=== PATIENT | female | born 2000 | race Caucasian/White ===

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

== ENCOUNTER 2023-02-13 01:44 | Emergency (ER) | payer OTHER ==
[2023-02-13] MEDS ORDERED: Sodium Chloride 0.9% 1,000 ML IV ONE (01:49)
[2023-02-13] MEDS ORDERED: LORazepam 2 MG/ML SDV IVPUSH ONE (01:49)
[2023-02-13] MEDS ORDERED: Ketorolac 30 MG/ML SDV IVPUSH ONE (01:49)
[2023-02-13] MEDS ORDERED: Aluminum Hydroxide/Magnesium Hydroxide/Simethicone XS Susp 30 ML Cup PO ONE (01:52)
[2023-02-13 01:58] LABS: BASOPHILS PERCENT AUTO 0.2 % (0.0-1.5); EOSINOPHILS ABSOLUTE AUTO 0.3 K/uL (0.0-0.7); EOSINOPHILS PERCENT AUTO 1.9 % (0.0-7.0); HEMATOCRIT 43.1 % (36.0-46.0); HEMOGLOBIN 15.1 g/dL (12.0-16.0); LYMPHOCYTES ABSOLUTE AUTO 5.6 K/uL (0.6-2.4); LYMPHOCYTES PERCENT AUTO 38.2 % (16.0-40.0); MEAN CORPUSCULAR HEMOGLOBIN 29.3 pg (27.0-32.0); MEAN CORPUSCULAR VOLUME 83.5 fL (80.0-98.0); MONOCYTES ABSOLUTE AUTO 1.6 K/uL (0.0-0.8); MONOCYTES PERCENT AUTO 10.8 % (0.0-15.0); NEUTROPHILS ABSOLUTE AUTO 7.2 K/uL (1.4-5.7); NEUTROPHILS PERCENT AUTO 48.9 % (48.0-80.0); NRBC ABSOLUTE 0 K/uL; PLATELET COUNT,PLT 291 K/uL (150-400); RED BLOOD CELL COUNT 5.16 M/uL (4.30-5.90); WHITE BLOOD CELL COUNT,WBC 14.72 K/uL (4.0-11.0)
[2023-02-13 02:27] LABS: A/G RATIO 0.9 (0.9-1.6); ALANINE AMINOTRANSFERASE,ALT 17 IU/L (14-63); ALBUMIN 3.7 g/dL (3.4-5.0); ALKALINE PHOSPHATASE 75 U/L (46-116); ASPARTATE AMNIOTRANSFERASE,AST 13 IU/L (15-37); BILIRUBIN TOTAL 0.2 mg/dL (0.2-1.0); BLOOD UREA NITROGEN,BUN 14 mg/dL (7.0-18.0); CALCIUM 9.3 mg/dL (8.5-10.1); CARBON DIOXIDE,CO2 23.7 mmol/L (21.0-32.0); CHLORIDE,CL 104 mmol/L (98-107); CREATININE 0.8 mg/dL (0.6-1.0); EST CRCL DRUG DOSING (CG) 104.14 mL/min; GLUCOSE RANDOM 100 mg/dL (74-106); POTASSIUM,K 3.7 mmol/L (3.5-5.1); SODIUM,NA 141 mmol/L (136-145); TSH ULTRASENSITIVE 7.36 uIU/mL (0.36-3.74)
[2023-02-13 02:28] LABS: ESTIMATED GFR 107 mL/min (>60); ETHANOL BLOOD MEDICAL < 3.0 mg/dL
[2023-02-13 02:36] LABS: AMPHETAMINES SCREEN, URINE NEGATIVE (CUTOFF=500); BARBITURATE SCREEN,URINE NEGATIVE (CUTOFF=200); BENZODIAZEPINES SCREEN,URINE NEGATIVE (CUTOFF=150); BUPRENORPHINE SCREEN,URINE NEGATIVE (CUTOFF=10); METHADONE SCREEN, URINE NEGATIVE (CUTOFF=200); METHAMPHETAMINES SCREEN, URINE NEGATIVE (CUTOFF=500); OXYCODONE SCREEN,URINE NEGATIVE (CUT0FF=100); PCP SCREEN,URINE NEGATIVE (CUTOFF=25); PROPOXYPHENE SCREEN,URINE NEGATIVE (CUTOFF=300); THC SCREEN,URINE 20 NG/ML NEGATIVE (CUTOFF=50)
[2023-02-13] MEDS ORDERED: Iopamidol 755 MG/ML 500 ML Multipack Bottle IVPUSH ONE (02:44)
== END 2023-02-13 04:09 | disposition home or self-care (01) ==
LOC: MW.ED 01:44
DX: R07.9 Chest pain, unspecified (principal); Z88.8 Allergy status to other drugs, medicaments and biological substances
CPT/HCPCS: 36415; 71045; 71275; 80053; 80305; 80307; 81025; 84439; 84443; 84484; 85025; 85379; 93005; 96361; 96374; 96375; 99285; A9270; J1885; J2060; J7030; Q9967; 93010; 99284

== ENCOUNTER 2023-03-30 10:12 | Emergency (ER) | payer BC, OTHER ==
[2023-03-30] MEDS ORDERED: Sodium Chloride 0.9% 10 ML Syringe FLUSH PRN (10:26)
[2023-03-30] MEDS ORDERED: Sodium Chloride 0.9% 2.5 ML Syringe FLUSH PRN (10:26)
[2023-03-30] MEDS ORDERED: LORazepam 2 MG/ML SDV IVPUSH STA (10:33)
[2023-03-30 10:57] LABS: APPEARANCE,URINE SLT CLOUDY; BILIRUBIN,URINE NEGATIVE (NEGATIVE); COLOR,URINE YELLOW; GLUCOSE,URINE NEGATIVE (NEGATIVE); KETONES,URINE NEGATIVE (NEGATIVE); LEUKOCYTE ESTERASE,URINE TRACE (NEGATIVE); NITRITE,URINE NEGATIVE (NEGATIVE); OCCULT BLOOD,URINE TRACE-INTACT (NEGATIVE); PH,URINE 5.5 (5.0-8.0); PROTEIN,URINE NEGATIVE (NEGATIVE); UROBILINOGEN,URINE 0.2 EU/dL (<2.0)
[2023-03-30 11:02] LABS: EPITHELIAL CELLS,URINE MODERATE (NONE-FEW); RBC,URINE 0-2 (0-2/HPF)
[2023-03-30 11:03] LABS: BACTERIA,URINE FEW (NEGATIVE)
[2023-03-30 11:03] LABS: BASOPHILS ABSOLUTE AUTO 0.02 K/uL (0.00-0.20); BASOPHILS PERCENT AUTO 0.2 % (0.0-1.0); HEMATOCRIT 41.6 % (37.0-47.0); HEMOGLOBIN 14.1 g/dL (12.0-16.0); LYMPHOCYTES ABSOLUTE AUTO 1.63 K/uL (1.00-4.80); LYMPHOCYTES PERCENT AUTO 15.9 % (24.0-44.0); MEAN CORPUSCULAR HEMOGLOBIN 28.5 pg (28.0-32.0); MEAN CORPUSCULAR HGB CONC 33.9 g/dL (32.0-36.0); MEAN CORPUSCULAR VOLUME 84.2 fL (83.0-99.0); MEAN PLATELET VOLUME 10.7 fL (9.4-12.3); MONOCYTES ABSOLUTE AUTO 1.08 K/uL (0.00-0.80); MONOCYTES PERCENT AUTO 10.5 % (0.0-8.0); NEUTROPHILS ABSOLUTE AUTO 7.4 K/uL (1.8-7.7); PLATELET COUNT,PLT 233 K/uL (150-400); RED BLOOD CELL COUNT 4.94 M/uL (4.10-5.30); WHITE BLOOD CELL COUNT,WBC 10.25 K/uL (3.9-11.3)
[2023-03-30 11:31] LABS: CORONAVIRUS COVID-19 NAA NEGATIVE (NEGATIVE); INFLUENZA A NAA NEGATIVE (NEGATIVE); INFLUENZA B NAA NEGATIVE (NEGATIVE)
[2023-03-30 11:38] LABS: A/G RATIO 0.9 (0.9-1.6); ALANINE AMINOTRANSFERASE,ALT 23 IU/L (14-63); ALBUMIN 3.7 g/dL (3.4-5.0); ALKALINE PHOSPHATASE 78 U/L (46-116); ASPARTATE AMNIOTRANSFERASE,AST 16 IU/L (15-37); BILIRUBIN TOTAL 0.4 mg/dL (0.2-1.0); BLOOD UREA NITROGEN,BUN 10 mg/dL (7.0-18.0); CHLORIDE,CL 105 mmol/L (98-107); CREATININE 0.8 mg/dL (0.6-1.0); ESTIMATED GFR 107 mL/min (>60); GLUCOSE RANDOM 95 mg/dL (74-106); LIPASE 35 U/L (16-77); PROTEIN TOTAL,TP 7.8 g/dL (6.4-8.2); SODIUM,NA 137 mmol/L (136-145)
== END 2023-03-30 12:48 | disposition home or self-care (01) ==
LOC: MW.ED 10:12
DX: R07.9 Chest pain, unspecified (principal); R42 Dizziness and giddiness; Z20.822 Contact with and (suspected) exposure to COVID-19
CPT/HCPCS: 0240U; 36415; 71046; 80053; 81001; 81025; 83690; 83735; 84443; 84484; 85025; 87086; 93005; 96374; 99285; J2060; J3490; 93010; 99284

== ENCOUNTER 2023-10-04 07:09 | Emergency (ER) | payer BC | END 2023-10-04 08:05 | disposition home or self-care (01) | LOC: MW.ED 07:09 | DX: F41.9 Anxiety disorder, unspecified (principal); E03.9 Hypothyroidism, unspecified; Z75.8 Other problems related to medical facilities and other health care; Z88.8 Allergy status to other drugs, medicaments and biological substances; Z79.899 Other long term (current) drug therapy | CPT/HCPCS: 99282; 99283 ==

== ENCOUNTER 2023-11-20 21:41 | Emergency (ER) | payer BC ==
[2023-11-20] MEDS: Ibuprofen 600 MG Tab PO ONE (23:59)
== END 2023-11-21 00:19 | disposition home or self-care (01) ==
LOC: MW.ED 21:41
DX: S92.255A Nondisplaced fracture of navicular [scaphoid] of left foot, initial encounter for closed fracture (principal); Z79.899 Other long term (current) drug therapy; Z88.8 Allergy status to other drugs, medicaments and biological substances; Z75.8 Other problems related to medical facilities and other health care; V58.2XXA Person on outside of pick-up truck or van injured in noncollision transport accident in nontraffic accident, initial encounter
CPT/HCPCS: 29515; 73610; 73630; 99283; A9270

== ENCOUNTER 2024-04-17 17:39 | Emergency (ER) | payer BC ==
[2024-04-17 17:59] LABS: BASOPHILS ABSOLUTE AUTO 0.05 K/uL (0.00-0.20); BASOPHILS PERCENT AUTO 0.4 % (0.0-1.0); EOSINOPHILS ABSOLUTE AUTO 0.19 K/uL (0.00-0.45); EOSINOPHILS PERCENT AUTO 1.5 % (0.0-6.0); HEMATOCRIT 42.3 % (37.0-47.0); HEMOGLOBIN 14.2 g/dL (12.0-16.0); IMMATURE GRAN ABSOLUTE AUTO 0.05 K/uL (0.00-0.05); IMMATURE GRAN PERCENT AUTO 0.4 % (0.0-0.4); LYMPHOCYTES ABSOLUTE AUTO 3.94 K/uL (1.00-4.80); LYMPHOCYTES PERCENT AUTO 31.8 % (24.0-44.0); MEAN CORPUSCULAR HEMOGLOBIN 28.6 pg (28.0-32.0); MEAN CORPUSCULAR HGB CONC 33.6 g/dL (32.0-36.0); MEAN CORPUSCULAR VOLUME 85.1 fL (83.0-99.0); MEAN PLATELET VOLUME 10.9 fL (9.4-12.3); MONOCYTES PERCENT AUTO 8.9 % (0.0-8.0); NEUTROPHILS ABSOLUTE AUTO 7.05 K/uL (1.80-7.70); PLATELET COUNT,PLT 263 K/uL (150-400); RED BLOOD CELL COUNT 4.97 M/uL (4.10-5.30); WHITE BLOOD CELL COUNT,WBC 12.38 K/uL (3.9-11.3)
[2024-04-17 18:24] LABS: ALANINE AMINOTRANSFERASE,ALT 18 IU/L (14-63); ALBUMIN 3.8 g/dL (3.4-5.0); ALKALINE PHOSPHATASE 86 U/L (46-116); ASPARTATE AMNIOTRANSFERASE,AST 14 IU/L (15-37); BILIRUBIN TOTAL 0.4 mg/dL (0.2-1.0); BLOOD UREA NITROGEN,BUN 12 mg/dL (7.0-18.0); CALCIUM 9.6 mg/dL (8.5-10.1); CARBON DIOXIDE,CO2 30.6 mmol/L (21.0-32.0); CHLORIDE,CL 104 mmol/L (98-107); CREATININE 0.9 mg/dL (0.6-1.0); ESTIMATED GFR 93 mL/min (>60); GLUCOSE RANDOM 100 mg/dL (74-106); LIPASE 41 U/L (16-77); POTASSIUM,K 3.6 mmol/L (3.5-5.1); PROTEIN TOTAL,TP 7.7 g/dL (6.4-8.2); SODIUM,NA 143 mmol/L (136-145)
[2024-04-17 18:32] LABS: MAGNESIUM 1.9 mg/dL (1.8-2.4); TSH ULTRASENSITIVE 2.89 uIU/mL (0.36-3.74)
[2024-04-17] MEDS: Alum Hydrox/Mag Hydrox/Simeth 15 ML, Lidocaine 2% 5 ML PO STA (18:52)
[2024-04-17] MEDS: Pantoprazole 40 MG Tab.CR PO STA (19:25)
== END 2024-04-17 19:27 | disposition home or self-care (01) ==
LOC: MW.ED 17:39
DX: K29.00 Acute gastritis without bleeding (principal); Z75.8 Other problems related to medical facilities and other health care; Z88.8 Allergy status to other drugs, medicaments and biological substances
CPT/HCPCS: 36415; 71046; 80053; 83690; 83735; 84443; 84484; 84703; 85025; 93005; 99285; A9270; 93010

== ENCOUNTER 2024-05-07 20:07 | Emergency (ER) | payer BC ==
[2024-05-07] MEDS: Lidocaine 1% with EPINEPHrine 1:200,000 30 ML SDV INJECT ONE (20:27)
[2024-05-07] MEDS: Metoclopramide 5 MG Tab PO ONE (20:42)
== END 2024-05-07 21:00 | disposition home or self-care (01) ==
LOC: MW.ED 20:07
DX: S61.412A Laceration without foreign body of left hand, initial encounter (principal); Z79.899 Other long term (current) drug therapy; Z79.890 Hormone replacement therapy; Z88.8 Allergy status to other drugs, medicaments and biological substances; W26.0XXA Contact with knife, initial encounter
CPT/HCPCS: 99282; A9270; J3490

== ENCOUNTER 2025-03-23 20:14 | Emergency (ER) | payer BC | END 2025-03-23 21:28 | disposition home or self-care (01) | LOC: MW.ED 20:14 | DX: S76.311A Strain of muscle, fascia and tendon of the posterior muscle group at thigh level, right thigh, initial encounter (principal); Z88.8 Allergy status to other drugs, medicaments and biological substances; Z79.899 Other long term (current) drug therapy; X50.1XXA Overexertion from prolonged static or awkward postures, initial encounter | CPT/HCPCS: 99283; A9270 ==

== ENCOUNTER 2025-05-04 23:56 | Emergency (ER) | payer BC | END 2025-05-05 01:45 | disposition home or self-care (01) | LOC: MW.ED 23:56 | DX: L50.9 Urticaria, unspecified (principal); Z88.8 Allergy status to other drugs, medicaments and biological substances; Z79.899 Other long term (current) drug therapy | CPT/HCPCS: 99282; A9270 ==